=== PATIENT | male | born 2000 | race Caucasian/White ===

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

== ENCOUNTER 2024-06-13 16:43 | Emergency (ER) | payer OTHER, SELFPAY ==
[~2024-06-13] VITALS: Ht 170.2 cm; Wt 61.8 kg
[2024-06-13 16:44] VITALS: BP 138/70; TEMP 97.6; O2SAT 100
[2024-06-13] MEDS: NEOSPORIN OINT 0.9 GM PKT TOP ONE (19:00)
== END 2024-06-13 19:24 | disposition home or self-care (01) ==
LOC: M ED 16:43
DX: S01.01XA Laceration without foreign body of scalp, initial encounter (principal); W20.8XXA Other cause of strike by thrown, projected or falling object, initial encounter; Y92.9 Unspecified place or not applicable; Y93.9 Activity, unspecified; Y99.0 Civilian activity done for income or pay; F17.200 Nicotine dependence, unspecified, uncomplicated